=== PATIENT | male | born 1960 | race Caucasian/White ===

== ENCOUNTER 2016-06-29 11:30 | Day surgery (SDC) | payer OTHER ==
[~2016-06-29 11:30] MED LIST: DIPHENHYDRAMINE HCL 50 MG/ML VIAL ONE; EPINEPHRINE INJ 1 MG/10 ML DISP.SYRIN ONE; FENTANYL CITRATE INJ/PF 100 MCG/2 ML AMPUL ONE; FLUMAZENIL INJ 0.5 MG/5 ML VIAL IV ONE; GLUCAGON,HUMAN RECOMB 1 MG INJ ONE; MIDAZOLAM 2 MG/2 ML INJ ONE; NALOXONE HCL INJ/PF 0.4 MG/1 ML SDV ONE; ONDANSETRON HCL INJ/PF 4 MG/2 ML SDV ONE; PROMETHAZINE HCL INJ 25 MG/1 ML VIAL ONE
--- NOTE | 2016-06-29 12:30 | Operative Report ---
Operative Report DATE OF SURGERY: 06/29/16 Operative Report: The risks, benefits and alternatives of the procedure including risks of bleeding, perforation requiring surgery are explained to the patient in detail and informed consent is obtained. Patient is taken back to the endoscopy suite. He is placed in the left lateral decubital position. Timeout is called. An Olympus videoscope was inserted into the patient's rectum. The scope was then gradually advanced all the way to the cecum. Cecum was identified by the usual anatomical landmarks including the ileocecal valve as well as the appendiceal office. Photodocumentation is obtained. Prep is good. Scope was then sequentially pulled back via the various segments of the colon including the ascending colon, hepatic flexure, transverse colon, splenic flexure, descending colon and finally into the rectosigmoid colon mucosa does otherwise appeared to be normal retroflexion maneuvers performed PREOPERATIVE DIAGNOSIS: Colorectal cancer screening. POSTOPERATIVE DIAGNOSIS: Normal screening colonoscopy. OPERATION: Diagnostic colonoscopy. SURGEON: MATT DAMON ANESTHESIA: Moderate Sedation - 4 mg of Versed, 100 g of fentanyl. Conscious sedation monitoring time equals 15 minutes. TISSUE REMOVED OR ALTERED: None. COMPLICATIONS: None. ESTIMATED BLOOD LOSS: none. INTRAOPERATIVE FINDINGS: No masses, AVMs, diverticulosis noted. Mild internal hemorrhoids. PROCEDURE: Patient tolerated the procedure well. No immediate postprocedure complications are noted. Patient is discharged in good condition. Discharge date 06/29/2016. Discharge diet: Regular. Discharge activity: Regular. 2-3 week follow-up to discuss findings. 10 year surveillance which should be adequate sooner if having problems when necessary follow-up
[2016-06-29 13:12] VITALS: BP 113/75
== END 2016-06-29 13:25 | disposition home or self-care (01) ==
LOC: END 11:30
PROVIDERS: ATTEND Internal Medicine Gastroenterology
PROC: 0DJD8ZZ Inspection of Lower Intestinal Tract, Via Natural or Artificial Opening Endoscopic (ICD-10-PCS; principal; 2016-06-29 12:00)
DX: Z12.11 Encounter for screening for malignant neoplasm of colon (principal); K64.8 Other hemorrhoids; Z79.899 Other long term (current) drug therapy; Z79.1 Long term (current) use of non-steroidal anti-inflammatories (NSAID)
CPT/HCPCS: 45378; J2250; J3010; J0171; J1200; J1610; J2310; J2405; J2550; J3490

== ENCOUNTER → 2016-07-11 | Outpatient (CLI) | payer OTHER | LOC: OD 10:51 | PROVIDERS: ATTEND Nurse Practitioner | DX: M25.462 Effusion, left knee (principal); M54.5 Low back pain; M47.896 Other spondylosis, lumbar region | CPT/HCPCS: 72110 ==

== ENCOUNTER → 2016-07-11 | Outpatient (CLI) | payer OTHER ==
--- NOTE | 2016-07-11 18:24 | EKG REPORT ---
SEVERITY:- NORMAL ECG - SINUS RHYTHM : Confirmed by: Yves Cohen MD 11-Jul-2016 18:23:55
== END ==
LOC: OD 10:54
PROVIDERS: ATTEND Nurse Practitioner
DX: Z00.01 Encounter for general adult medical examination with abnormal findings (principal)
CPT/HCPCS: 93005; 93010

== ENCOUNTER → 2019-03-17 | Outpatient (CLI) | payer BC ==
--- NOTE | 2019-03-17 13:46 | RADIOLOGY REPORT (SQ) ---
EXAM DESCRIPTION: CHEST PA/LATERAL COMPLETED DATE/TIME: 03/17/2019 1:24 pm REASON FOR STUDY: COUGH COMPARISON: None. EXAM PARAMETERS: NUMBER OF VIEWS: two views TECHNIQUE: Digital Frontal and Lateral radiographic views of the chest acquired. RADIATION DOSE: NA LIMITATIONS: none FINDINGS: LUNGS AND PLEURA: No opacities, masses or pneumothorax. No pleural effusion. MEDIASTINUM AND HILAR STRUCTURES: No masses or contour abnormalities. HEART AND VASCULAR STRUCTURES: Heart normal size. No evidence for failure. BONES: No acute findings. HARDWARE: None in the chest. OTHER: No other significant finding. IMPRESSION: NO SIGNIFICANT RADIOGRAPHIC FINDING IN THE CHEST. TECHNICAL DOCUMENTATION: JOB ID: [id number] [employer]- All Rights Reserved Reading location - IP/workstation name: [email or web address]
--- NOTE | 2019-03-17 13:48 | RADIOLOGY REPORT (SQ) ---
EXAM DESCRIPTION: ANKLE RIGHT COMPLETE COMPLETED DATE/TIME: 03/17/2019 1:24 pm REASON FOR STUDY: PAIN IN RIGHT ANKLE AND JOINTS OF RIGHT FOOT R05 COUGH M25.571 PAIN IN RIGHT ANK LE AND JOINTS OF RIGHT FOOT COMPARISON: None. NUMBER OF VIEWS: Three views. TECHNIQUE: AP, lateral, and oblique radiographic images acquired of the right ankle. LIMITATIONS: None. FINDINGS: MINERALIZATION: Normal. BONES: No acute fracture or dislocation. No worrisome bone lesions. JOINTS: No effusions. SOFT TISSUES: Dystrophic calcifications are seen in the Achilles tendon. There is a portion of a bro magalis sewing needle apparently in the soft tissues anterior to the ankle. OTHER: No other significant finding. IMPRESSION: No acute fracture. Likely prior Achilles tendon knee injury. Foreign body. TECHNICAL DOCUMENTATION: JOB ID: [id number] [employer]- All Rights Reserved Reading location - IP/workstation name: [email or web address]
== END ==
LOC: OD 12:54
PROVIDERS: ATTEND Nurse Practitioner Family
DX: M25.571 Pain in right ankle and joints of right foot (principal); R05 Cough
CPT/HCPCS: 71046

== ENCOUNTER → 2020-02-23 | Outpatient (CLI) | payer BC ==
--- NOTE | 2020-02-23 12:36 | RADIOLOGY REPORT (SQ) ---
EXAM DESCRIPTION: C SP 4 OR 5 VIEWS IMAGES COMPLETED DATE/TIME: 02/23/2020 11:45 am REASON FOR STUDY: CERVICALGIA M25.562 PAIN IN LEFT KNEE M54.9 DORSALGIA, UNSPECIFIED M54.2 CERVIC ALGIA COMPARISON: None. NUMBER OF VIEWS: Five views. TECHNIQUE: AP, lateral, obliques and odontoid radiographic images acquired of the cervical spine. LIMITATIONS: None. FINDINGS: MINERALIZATION: Normal. ALIGNMENT: Anatomic. VERTEBRAE: Vertebral bodies of normal height. DISCS: Disc spaces are narrowed from C3-C7. Marginal osteophytes are most prominent at C5-6 and C6-7 . FORAMINA: There is mild narrowing of the right neural foramen at C5-6 secondary to uncovertebral oste ophytes. LATERAL AND POSTERIOR ELEMENTS: Facets, lateral masses and spinous processes without significant find ings. HARDWARE: None in the spine. SOFT TISSUES: No masses or calcifications. Lung apices clear. OTHER: No other significant finding. IMPRESSION: Degenerative disc disease and spondylosis. TECHNICAL DOCUMENTATION: JOB ID: [id number] 2010 [employer]- All Rights Reserved Reading location - IP/workstation name: [email or web address]
--- NOTE | 2020-02-23 12:37 | RADIOLOGY REPORT (SQ) ---
EXAM DESCRIPTION: KNEE LEFT 4 VIEWS IMAGES COMPLETED DATE/TIME: 02/23/2020 11:45 am REASON FOR STUDY: PAIN IN LEFT KNEE M25.562 PAIN IN LEFT KNEE M54.9 DORSALGIA, UNSPECIFIED M54.2 CERVICALGIA COMPARISON: None. NUMBER OF VIEWS: Four views. TECHNIQUE: AP, lateral, and both oblique radiographic images acquired of the left knee. LIMITATIONS: None. FINDINGS: MINERALIZATION: Normal. BONES: No acute fracture or dislocation. No worrisome bone lesions. JOINT: No effusion. Cannot exclude the presence of a couple small loose bodies. SOFT TISSUES: No soft tissue swelling. No radio-opaque foreign body. OTHER: No other significant finding. IMPRESSION: Cannot exclude loose bodies in the joint posteriorly. No acute osseous finding. TECHNICAL DOCUMENTATION: JOB ID: [id number] [employer]- All Rights Reserved Reading location - IP/workstation name: [email or web address]
--- NOTE | 2020-02-23 12:39 | RADIOLOGY REPORT (SQ) ---
EXAM DESCRIPTION: LUMBAR SPINE COMPLETE IMAGES COMPLETED DATE/TIME: 02/23/2020 11:45 am REASON FOR STUDY: DORSALGIA, UNSPECIFIED M25.562 PAIN IN LEFT KNEE M54.9 DORSALGIA, UNSPECIFIED M5 4.2 CERVICALGIA COMPARISON: None. NUMBER OF VIEWS: Five views including obliques. TECHNIQUE: AP, lateral, oblique, and sacral radiographic images acquired of the lumbar spine. LIMITATIONS: None. FINDINGS: MINERALIZATION: Normal. SEGMENTATION: Normal. No transitional anatomy. ALIGNMENT: Normal. VERTEBRAE: Maintained height. No fracture or worrisome bone lesion. DISCS: Disc spaces narrowed from L3 -S1. Marginal osteophytes are most prominent at L4-5. POSTERIOR ELEMENTS: Hypertrophic facet changes from L4-S1. HARDWARE: None in the spine. PARASPINAL SOFT TISSUES: Normal. PELVIS: Intact as visualized. No fractures or worrisome bone lesions. SI joints intact. OTHER: No other significant finding. IMPRESSION: Degenerative disc disease, spondylosis, and facet arthropathy. TECHNICAL DOCUMENTATION: JOB ID: [id number] 2010 [employer]- All Rights Reserved Reading location - IP/workstation name: [email or web address]
--- NOTE | 2020-02-23 12:40 | RADIOLOGY REPORT (SQ) ---
EXAM DESCRIPTION: T SPINE AP/LAT IMAGES COMPLETED DATE/TIME: 02/23/2020 11:45 am REASON FOR STUDY: DORSALGIA, UNSPECIFIED M25.562 PAIN IN LEFT KNEE M54.9 DORSALGIA, UNSPECIFIED M5 4.2 CERVICALGIA COMPARISON: None. NUMBER OF VIEWS: Two views. TECHNIQUE: AP and lateral radiographic images acquired of the thoracic spine. LIMITATIONS: None. FINDINGS: MINERALIZATION: Normal. ALIGNMENT: Mild levoscoliosis in the mid to lower thoracic spine. VERTEBRAE: No fracture or bone lesion. Maintained height, normal segmentation. DISCS: Disc spaces are fairly well maintained. There are bridging osteophytes in the mid to lower th oracic spine. HARDWARE: None in the spine. MEDIASTINUM AND SOFT TISSUES: Normal heart size and aortic contour. No soft tissue abnormality. VISUALIZED LUNG STALLWORTH: Clear. OTHER: No other significant finding. IMPRESSION: Mild scoliosis. Spondylosis. TECHNICAL DOCUMENTATION: JOB ID: [id number] 2010 [employer]- All Rights Reserved Reading location - IP/workstation name: [email or web address]
--- NOTE | 2020-02-23 12:41 | RADIOLOGY REPORT (SQ) ---
EXAM DESCRIPTION: KNEE RIGHT 4 VIEWS IMAGES COMPLETED DATE/TIME: 02/23/2020 11:45 am REASON FOR STUDY: PAIN IN RIGHT KNEE M25.562 PAIN IN LEFT KNEE M54.9 DORSALGIA, UNSPECIFIED M54.2 CERVICALGIA COMPARISON: None. NUMBER OF VIEWS: Four views. TECHNIQUE: AP, lateral, and both oblique radiographic images acquired of the right knee. LIMITATIONS: None. FINDINGS: MINERALIZATION: Normal. BONES: No acute fracture or dislocation. No worrisome bone lesions. JOINT: No effusion. SOFT TISSUES: No soft tissue swelling. No radio-opaque foreign body. OTHER: No other significant finding. IMPRESSION: NEGATIVE STUDY OF THE RIGHT KNEE. NO RADIOGRAPHIC EVIDENCE OF ACUTE INJURY. TECHNICAL DOCUMENTATION: JOB ID: [id number] 2010 [employer]- All Rights Reserved Reading location - IP/workstation name: [email or web address]
== END ==
LOC: OD 10:58
PROVIDERS: ATTEND Nurse Practitioner
DX: M25.561 Pain in right knee (principal); M50.323 Other cervical disc degeneration at C6-C7 level; M47.814 Spondylosis without myelopathy or radiculopathy, thoracic region; M47.816 Spondylosis without myelopathy or radiculopathy, lumbar region; M51.36 Other intervertebral disc degeneration, lumbar region; M47.812 Spondylosis without myelopathy or radiculopathy, cervical region
CPT/HCPCS: 72050; 72070; 72110